=== PATIENT | male | born 1955 | race Caucasian/White ===

== ENCOUNTER 2017-04-04 00:53 | Emergency (ER) | payer MEDICARE, OTHER ==
[~2017-04-04] VITALS: Ht 180.3 cm; Wt 101.8 kg
[2017-04-04 00:58] VITALS: TEMP 98.2
[2017-04-04] MEDS ORDERED: MAVIK4 MG PO (01:04)
[2017-04-04 02:56] VITALS: BP 134/78; PULSE 80
[2017-04-04] MEDS ORDERED: ROXICODONE 55 MG/TAB PO (02:59)
[2017-04-04] MEDS ORDERED: FLEXERIL 1010 MG/TAB PO (02:59)
== END 2017-04-04 03:05 | disposition home or self-care (01) ==
LOC: COL.ER 00:53
DX: S16.1XXA Strain of muscle, fascia and tendon at neck level, initial encounter (principal); S39.012A Strain of muscle, fascia and tendon of lower back, initial encounter; W00.0XXA Fall on same level due to ice and snow, initial encounter; Y92.414 Local residential or business street as the place of occurrence of the external cause; I10 Essential (primary) hypertension; R40.2412 Glasgow coma scale score 13-15, at arrival to emergency department; Z88.6 Allergy status to analgesic agent; Z91.040 Latex allergy status
CPT/HCPCS: J1170

== ENCOUNTER 2017-04-06 02:57 | Emergency (ER) | payer MEDICARE, OTHER ==
[~2017-04-06] VITALS: Ht 180.3 cm; Wt 101.8 kg
[~2017-04-06 02:57] MED LIST: FLEXERIL 1010 MG/TAB PO; MAVIK4 MG PO; ROXICODONE 55 MG/TAB PO
[2017-04-06 03:05] VITALS: TEMP 97.9
[2017-04-06 04:36] LABS: BASO # 0.1 (0.0-0.2); EOS # 0.1 (0.0-0.7); EOS % 1.4 % (0-4.0); GRAN % 61.9 % (42.2-75.2); HEMATOCRIT 46.3 % (42.0-52.0); HEMOGLOBIN 15.5 g/dl (13.5-18.0); LYMPH # 2.6 (1.2-3.4); LYMPH % 26.9 % (20.0-51.0); MEAN CELL VOLUME 87 fl (80.0-100.0); MEAN CORPUSCULAR HEMOGLOBIN 29 pg (27.0-31.0); MEAN CORPUSCULAR HGB CONC 34 g/dl (33.0-37.0); MEAN PLATELET VOLUME 9.8 fl (7.4-10.4); MONO # 0.8 (0.1-0.6); MONO % 8.4 % (1.7-9.3); PLATELET COUNT 250 K/mm3 (130-400); RED BLOOD COUNT 5.32 M/mm3 (4.20-5.60); REDCELL DISTRIBUTION WIDTH-CV 13.1 % (11.5-14.5)
[2017-04-06 04:45] LABS: ALBUMIN 4.4 gm/dL (3.5-5.0); BILIRUBIN,TOTAL 1.4 mg/dL (0.0-1.0); CALCIUM 9.8 mg/dL (8.4-10.2); CREATININE, serum 0.96 mg/dL (0.66-1.25); POTASSIUM 4.3 mmol/L (3.4-5.0); TOTAL PROTEIN 7.3 gm/dL (6.4-8.2)
[2017-04-06 04:50] LABS: COLLECTION METHOD CLEAN CATCH
[2017-04-06 04:58] LABS: MUCOUS Present /lpf; PH 6 (5-8); SQUAMOUS EPITHELIAL None Seen /hpf; URINE APPEARANCE Clear; URINE BACTERIA Rare /hpf; URINE BILIRUBIN Negative (NEGATIVE); URINE BLOOD Negative (NEGATIVE); URINE COLOR Straw; URINE GLUCOSE Negative (NEGATIVE); URINE KETONE Negative (NEGATIVE); URINE LEUKOCYTE ESTERASE Negative (NEGATIVE); URINE NITRATE Negative (NEGATIVE); URINE PROTEIN(semi-quant) Negative (NEGATIVE); URINE RBC 0-2 /hpf; URINE UROBILINOGEN Negative (NEGATIVE)
[2017-04-06 05:58] VITALS: BP 167/99; PULSE 57
[2017-04-06] MEDS ORDERED: ANTIVERT 25MG25 MG PO (06:04)
[2017-04-06] MEDS ORDERED: VALIUM 2MG T2 MG/TAB PO (06:04)
== END 2017-04-06 06:16 | disposition home or self-care (01) ==
LOC: COL.ER 02:57
PROVIDERS: Emergency Medicine
DX: R42 Dizziness and giddiness (principal); I10 Essential (primary) hypertension; E78.5 Hyperlipidemia, unspecified; Z98.890 Other specified postprocedural states
CPT/HCPCS: J7030

== ENCOUNTER 2017-09-25 04:49 | Emergency (ER) | payer MEDICARE, OTHER ==
[~2017-09-25] VITALS: Ht 180.3 cm; Wt 87.3 kg
[~2017-09-25 04:49] MED LIST changes: +ANTIVERT 25MG25 MG PO; +VALIUM 2MG T2 MG/TAB PO
[2017-09-25 04:53] VITALS: TEMP 97.9
[2017-09-25] MEDS ORDERED: CLEOCIN HCL300 MG PO (05:35)
[2017-09-25] MEDS ORDERED: ROXICODONE 55 MG/TAB PO (05:35)
[2017-09-25] MEDS ORDERED: PERIDEX (CHLOR480 ML MM (06:05)
[2017-09-25 06:30] VITALS: BP 191/110; PULSE 59
== END 2017-09-25 06:26 | disposition home or self-care (01) ==
LOC: COL.ER 04:49
DX: K02.9 Dental caries, unspecified (principal); I10 Essential (primary) hypertension
CPT/HCPCS: J1170

== ENCOUNTER 2017-10-16 21:01 | Emergency (ER) | payer MEDICARE ==
[~2017-10-16] VITALS: Ht 180.3 cm; Wt 93.2 kg
[2017-10-16 21:01] VITALS: TEMP 97.8
[~2017-10-16 21:01] MED LIST changes: +CLEOCIN HCL300 MG PO; +PERIDEX (CHLOR480 ML MM
[2017-10-16] MEDS ORDERED: ASPIRIN 81M81 MG/TA2 PO (21:24)
[2017-10-16 22:51] VITALS: BP 186/101; PULSE 55
== END 2017-10-16 22:51 | disposition home or self-care (01) ==
LOC: COL.ER 21:01
DX: K04.7 Periapical abscess without sinus (principal); K02.9 Dental caries, unspecified; I10 Essential (primary) hypertension

== ENCOUNTER → 2018-02-21 | Outpatient (CLI) | payer MEDICARE ==
[~2018-02-21] MED LIST changes: +ASPIRIN 81M81 MG/TA2 PO
[2018-02-21 15:17] LABS: HEMATOCRIT 36.8 % (42.0-52.0); HEMOGLOBIN 12.5 g/dl (13.5-18.0); MEAN CELL VOLUME 91 fl (80.0-100.0); MEAN CORPUSCULAR HEMOGLOBIN 31 pg (27.0-31.0); MEAN CORPUSCULAR HGB CONC 34 g/dl (33.0-37.0); MEAN PLATELET VOLUME 9.5 fl (7.4-10.4); PLATELET COUNT 254 K/mm3 (130-400); RED BLOOD COUNT 4.04 M/mm3 (4.20-5.60); REDCELL DISTRIBUTION WIDTH-CV 14.9 % (11.5-14.5)
== END ==
LOC: COL.LAB 13:50
DX: Z01.89 Encounter for other specified special examinations (principal)

== ENCOUNTER → 2018-02-22 | Outpatient (CLI) | payer MEDICARE ==
[2018-02-22 14:28] LABS: COLLECTION METHOD CLEAN CATCH
[2018-02-22 14:50] LABS: AMORPHOUS CRYSTAL Present /uL; MUCOUS Present /lpf; PH 6 (5-8); SQUAMOUS EPITHELIAL 0-2 /hpf; URINE APPEARANCE Cloudy; URINE BACTERIA None Seen /hpf; URINE BILIRUBIN Negative (NEGATIVE); URINE BLOOD 2+ (NEGATIVE); URINE COLOR Red; URINE GLUCOSE Negative (NEGATIVE); URINE KETONE Negative (NEGATIVE); URINE LEUKOCYTE ESTERASE Negative (NEGATIVE); URINE NITRATE Negative (NEGATIVE); URINE PROTEIN(semi-quant) 2+ (NEGATIVE); URINE UROBILINOGEN Negative (NEGATIVE)
[2018-02-22 14:53] LABS: ALBUMIN 4.2 gm/dL (3.5-5.0); BILIRUBIN,TOTAL 4.2 mg/dL (0.0-1.0); CALCIUM 9.3 mg/dL (8.4-10.2); CHOLESTEROL RISK RATIO 2.8; CREATININE, serum 1.05 mg/dL (0.66-1.25); TOTAL PROTEIN 7.5 gm/dL (6.4-8.2)
[2018-02-22 15:21] LABS: TSH w REFLEX 1.44 uIU/mL (0.465-4.680)
== END ==
LOC: COL.LAB 13:24
DX: I10 Essential (primary) hypertension (principal); R42 Dizziness and giddiness

== ENCOUNTER → 2018-04-17 | Outpatient (CLI) | payer MEDICARE ==
[2018-04-17 12:12] LABS: BASO # 0.1 (0.0-0.2); BASO % 0.9 % (0.0-2.0); EOS # 0.2 (0.0-0.7); EOS % 2.2 % (0-4.0); GRAN # 4.5 (1.4-6.5); GRAN % 52.3 % (42.2-75.2); HEMATOCRIT 44.5 % (42.0-52.0); HEMOGLOBIN 15.2 g/dl (13.5-18.0); LYMPH # 3.1 (1.2-3.4); LYMPH % 35.5 % (20.0-51.0); MEAN CELL VOLUME 89 fl (80.0-100.0); MEAN CORPUSCULAR HEMOGLOBIN 31 pg (27.0-31.0); MEAN CORPUSCULAR HGB CONC 34 g/dl (33.0-37.0); MEAN PLATELET VOLUME 9.5 fl (7.4-10.4); MONO # 0.7 (0.1-0.6); MONO % 8.5 % (1.7-9.3); PLATELET COUNT 244 K/mm3 (130-400); RED BLOOD COUNT 4.98 M/mm3 (4.20-5.60); REDCELL DISTRIBUTION WIDTH-CV 12.8 % (11.5-14.5)
== END ==
LOC: COL.LAB 11:37
PROVIDERS: Registered Nurse
DX: R42 Dizziness and giddiness (principal)

== ENCOUNTER → 2018-05-02 | Outpatient (CLI) | payer MEDICARE, BC ==
[2018-05-02 14:50] LABS: ALBUMIN 4.5 gm/dL (3.5-5.0); BILIRUBIN,TOTAL 1.1 mg/dL (0.0-1.0); CALCIUM 9.9 mg/dL (8.4-10.2); CREATININE, serum 1.09 mg/dL (0.66-1.25); POTASSIUM 4.3 mmol/L (3.4-5.0); TOTAL PROTEIN 8.1 gm/dL (6.4-8.2)
== END ==
LOC: COL.LAB 14:01
PROVIDERS: Registered Nurse
DX: I10 Essential (primary) hypertension (principal); Z86.79 Personal history of other diseases of the circulatory system

== ENCOUNTER 2018-05-06 17:47 | Emergency (ER) | payer MEDICARE, BC ==
[~2018-05-06] VITALS: Ht 180.3 cm; Wt 97.7 kg
[2018-05-06 18:09] VITALS: BP 190/95; TEMP 98.2
[2018-05-06] MEDS ORDERED: ROXICODONE 55 MG/TAB PO (19:14)
[2018-05-06 19:30] VITALS: PULSE 61
== END 2018-05-06 19:30 | disposition home or self-care (01) ==
LOC: COL.ER 17:47
DX: M17.12 Unilateral primary osteoarthritis, left knee (principal); Z98.890 Other specified postprocedural states; Z79.82 Long term (current) use of aspirin

== ENCOUNTER → 2018-05-21 | Outpatient (CLI) | payer MEDICARE, BC | LOC: COL.LAB 14:19 | DX: Z01.812 Encounter for preprocedural laboratory examination (principal); Z86.14 Personal history of Methicillin resistant Staphylococcus aureus infection ==

== ENCOUNTER → 2018-06-10 | Outpatient (CLI) | payer MEDICARE, BC ==
[2018-06-10 11:52] LABS: BASO # 0.1 (0.0-0.2); BASO % 0.9 % (0.0-2.0); EOS # 0.1 (0.0-0.7); EOS % 1.3 % (0-4.0); GRAN # 4.5 (1.4-6.5); GRAN % 58.4 % (42.2-75.2); HEMATOCRIT 47.3 % (42.0-52.0); HEMOGLOBIN 16.1 g/dl (13.5-18.0); LYMPH # 2.4 (1.2-3.4); LYMPH % 31.6 % (20.0-51.0); MEAN CELL VOLUME 86 fl (80.0-100.0); MEAN CORPUSCULAR HEMOGLOBIN 29 pg (27.0-31.0); MEAN CORPUSCULAR HGB CONC 34 g/dl (33.0-37.0); MEAN PLATELET VOLUME 9.9 fl (7.4-10.4); MONO # 0.5 (0.1-0.6); PLATELET COUNT 283 K/mm3 (130-400); RED BLOOD COUNT 5.49 M/mm3 (4.20-5.60); REDCELL DISTRIBUTION WIDTH-CV 12.5 % (11.5-14.5)
[2018-06-10 11:53] LABS: INR 1.1 (0.8-3.0); PROTHROMBIN TIME 12.1 SECONDS (9.7-12.8)
[2018-06-10 11:54] LABS: ALBUMIN 4.3 gm/dL (3.5-5.0); BILIRUBIN,TOTAL 1.6 mg/dL (0.0-1.0); CALCIUM 9.6 mg/dL (8.4-10.2); CREATININE, serum 0.96 (0.66-1.25); POTASSIUM 4.2 mmol/L (3.4-5.0); TOTAL PROTEIN 7.4 gm/dL (6.4-8.2)
== END ==
LOC: COL.LAB 09:56
PROVIDERS: Registered Nurse
DX: Z01.818 Encounter for other preprocedural examination (principal); I10 Essential (primary) hypertension; R01.1 Cardiac murmur, unspecified

== ENCOUNTER → 2018-06-13 | Outpatient (CLI) | payer MEDICARE, BC ==
[2018-06-13 11:56] LABS: COLLECTION METHOD CLEAN CATCH
[2018-06-13 12:05] LABS: PH 7 (5-8); SQUAMOUS EPITHELIAL None Seen /hpf; URINE APPEARANCE Clear; URINE BACTERIA None Seen /hpf; URINE BILIRUBIN Negative (NEGATIVE); URINE BLOOD Negative (NEGATIVE); URINE COLOR Straw; URINE GLUCOSE Negative (NEGATIVE); URINE KETONE Negative (NEGATIVE); URINE LEUKOCYTE ESTERASE Negative (NEGATIVE); URINE NITRATE Negative (NEGATIVE); URINE PROTEIN(semi-quant) Negative (NEGATIVE); URINE RBC 0-2 /hpf; URINE UROBILINOGEN Negative (NEGATIVE)
== END ==
LOC: COL.LAB 11:37
PROVIDERS: Registered Nurse
DX: Z01.818 Encounter for other preprocedural examination (principal); I10 Essential (primary) hypertension; R01.1 Cardiac murmur, unspecified

== ENCOUNTER → 2018-06-13 | Outpatient (CLI) | payer MEDICARE, BC | LOC: COL.VAS 10:46 | DX: Z01.818 Encounter for other preprocedural examination (principal); I10 Essential (primary) hypertension; R01.1 Cardiac murmur, unspecified ==

== ENCOUNTER 2019-02-10 06:18 | Emergency (ER) | payer MEDICARE, OTHER ==
[~2019-02-10] VITALS: Ht 180.3 cm; Wt 104.5 kg
[2019-02-10 06:26] VITALS: BP 162/84; PULSE 77; TEMP 99
[2019-02-10] MEDS ORDERED: CHERATUSSIN AC120 ML PO (07:05)
== END 2019-02-10 07:14 | disposition home or self-care (01) ==
LOC: COL.ER 06:18
DX: J20.9 Acute bronchitis, unspecified (principal); M25.561 Pain in right knee; G89.29 Other chronic pain; Z79.82 Long term (current) use of aspirin

== ENCOUNTER → 2019-04-21 | Outpatient (CLI) | payer MEDICARE, OTHER ==
[~2019-04-21] MED LIST changes: +CHERATUSSIN AC120 ML PO
[2019-04-21 10:31] LABS: COLLECTION METHOD CLEAN CATCH
[2019-04-21 10:46] LABS: PH 5 (5-8); SQUAMOUS EPITHELIAL None Seen /hpf; URINE APPEARANCE Clear; URINE BACTERIA None Seen /hpf; URINE BILIRUBIN Negative (NEGATIVE); URINE BLOOD 1+ (NEGATIVE); URINE COLOR Yellow; URINE GLUCOSE Negative (NEGATIVE); URINE KETONE Negative (NEGATIVE); URINE LEUKOCYTE ESTERASE Negative (NEGATIVE); URINE NITRATE Negative (NEGATIVE); URINE PROTEIN(semi-quant) Negative (NEGATIVE); URINE RBC 0-2 /hpf; URINE UROBILINOGEN Negative (NEGATIVE)
[2019-04-21 10:54] LABS: BASO # 0.1 (0.0-0.2); BASO % 1.1 % (0.0-2.0); EOS # 0.2 (0.0-0.7); EOS % 2.2 % (0-4.0); GRAN # 4.8 (1.4-6.5); GRAN % 59.3 % (42.2-75.2); HEMOGLOBIN 16.3 g/dl (13.5-18.0); LYMPH # 2.3 (1.2-3.4); LYMPH % 28.9 % (20.0-51.0); MEAN CELL VOLUME 87 fl (80.0-100.0); MEAN CORPUSCULAR HEMOGLOBIN 29 pg (27.0-31.0); MEAN CORPUSCULAR HGB CONC 33 g/dl (33.0-37.0); MEAN PLATELET VOLUME 9.9 fl (7.4-10.4); MONO # 0.6 (0.1-0.6); PLATELET COUNT 251 K/mm3 (130-400); RED BLOOD COUNT 5.64 M/mm3 (4.20-5.60); REDCELL DISTRIBUTION WIDTH-CV 13.1 % (11.5-14.5)
[2019-04-21 10:57] LABS: ALBUMIN 4.5 gm/dL (3.5-5.0); BILIRUBIN,TOTAL 1.3 mg/dL (0.0-1.0); CALCIUM 9.8 mg/dL (8.4-10.2); CREATININE, serum 0.91 (0.66-1.25); TOTAL PROTEIN 7.9 gm/dL (6.4-8.2)
[2019-04-21 11:07] LABS: INR 0.9 (0.8-3.0)
== END ==
LOC: COL.LAB 10:12
PROVIDERS: Registered Nurse
DX: Z01.812 Encounter for preprocedural laboratory examination (principal); I10 Essential (primary) hypertension; R01.1 Cardiac murmur, unspecified

== ENCOUNTER → 2019-04-30 | Outpatient (CLI) | payer MEDICARE, OTHER | LOC: COL.VAS 10:30 | DX: M79.661 Pain in right lower leg (principal); Z96.651 Presence of right artificial knee joint ==

== ENCOUNTER 2019-05-16 07:38 | Emergency (ER) | payer MEDICARE, OTHER ==
[~2019-05-16] VITALS: Ht 180.3 cm; Wt 102.3 kg
[2019-05-16 08:56] LABS: BASO % 0.4 % (0.0-2.0); EOS % 0.2 % (0-4.0); GRAN # 4.1 (1.4-6.5); GRAN % 73.6 % (42.2-75.2); HEMATOCRIT 42.7 % (42.0-52.0); HEMOGLOBIN 13.7 g/dl (13.5-18.0); LYMPH # 0.8 (1.2-3.4); LYMPH % 15.2 % (20.0-51.0); MEAN CELL VOLUME 89 fl (80.0-100.0); MEAN CORPUSCULAR HEMOGLOBIN 29 pg (27.0-31.0); MEAN CORPUSCULAR HGB CONC 32 g/dl (33.0-37.0); MEAN PLATELET VOLUME 9.6 fl (7.4-10.4); MONO # 0.6 (0.1-0.6); MONO % 10.1 % (1.7-9.3); PLATELET COUNT 180 K/mm3 (130-400); REDCELL DISTRIBUTION WIDTH-CV 13.1 % (11.5-14.5)
[2019-05-16 09:08] LABS: ALBUMIN 4.1 gm/dL (3.5-5.0); BILIRUBIN,TOTAL 1.2 mg/dL (0.0-1.0); CALCIUM 8.7 mg/dL (8.4-10.2); CREATININE, serum 1.12 (0.66-1.25); POTASSIUM 3.8 mmol/L (3.4-5.0); TOTAL PROTEIN 7.1 gm/dL (6.4-8.2)
[2019-05-16 09:27] LABS: STREP SCREEN NEGATIVE
[2019-05-16] MEDS ORDERED: TAMIFLU 75MG75 MG PO (09:40)
[2019-05-16 09:53] VITALS: BP 136/70; PULSE 78; TEMP 98.9
== END 2019-05-16 09:52 | disposition home or self-care (01) ==
LOC: COL.ER 07:38
PROVIDERS: Emergency Medicine
DX: J10.1 Influenza due to other identified influenza virus with other respiratory manifestations (principal); Z79.82 Long term (current) use of aspirin
CPT/HCPCS: J7030

== ENCOUNTER 2019-07-02 10:28 | Emergency (ER) | payer MEDICARE, OTHER ==
[~2019-07-02 10:28] MED LIST changes: +TAMIFLU 75MG75 MG PO
[2019-07-02 11:26] LABS: ALANINE AMINOTRANSFERASE 25 U/L (4-49); ALBUMIN 4.5 gm/dL (3.5-5.0); ALKALINE PHOSPHATASE 77 U/L (50-136); ANION GAP 7 mmol/L (7-16); AST,SGOT 30 U/L (15-37); BILIRUBIN,TOTAL 1.4 mg/dL (0.0-1.0); BLOOD UREA NITROGEN 12 mg/dL (9-20); CALCIUM 9.7 mg/dL (8.4-10.2); CARBON DIOXIDE 25 mmol/L (22-30); CHLORIDE 104 mmol/L (98-107); CREATININE, serum 0.84 (0.66-1.25); GLUCOSE 129 mg/dL (74-106); POTASSIUM 3.8 mmol/L (3.4-5.0); SODIUM 137 mmol/L (137-145); TOTAL PROTEIN 7.4 gm/dL (6.4-8.2)
[2019-07-02 11:28] LABS: INR 0.9 (0.8-3.0); PROTHROMBIN TIME 10.7 SECONDS (9.7-12.8)
[2019-07-02 11:29] LABS: BASO # 0.1 (0.0-0.2); BASO % 0.9 % (0.0-2.0); EOS # 0.2 (0.0-0.7); EOS % 2.5 % (0-4.0); GRAN # 4.7 (1.4-6.5); GRAN % 57.6 % (42.2-75.2); HEMATOCRIT 47.6 % (42.0-52.0); LYMPH # 2.4 (1.2-3.4); MEAN CELL VOLUME 87 fl (80.0-100.0); MEAN CORPUSCULAR HEMOGLOBIN 29 pg (27.0-31.0); MEAN CORPUSCULAR HGB CONC 34 g/dl (33.0-37.0); MONO # 0.7 (0.1-0.6); MONO % 8.4 % (1.7-9.3); PLATELET COUNT 241 K/mm3 (130-400); RED BLOOD COUNT 5.47 M/mm3 (4.20-5.60); REDCELL DISTRIBUTION WIDTH-CV 13.4 % (11.5-14.5)
[2019-07-02 11:42] LABS: TROPONIN-I < 0.012 ng/mL (0.000-0.035)
[2019-07-02 12:32] LABS: COLLECTION METHOD CLEAN CATCH
[2019-07-02] MEDS ORDERED: LACRI-LUBE1 OIN OS (12:37)
[2019-07-02 12:39] LABS: PH 6 (5-8); SQUAMOUS EPITHELIAL None Seen /hpf; URINE APPEARANCE Clear; URINE BACTERIA None Seen /hpf; URINE BILIRUBIN Negative (NEGATIVE); URINE BLOOD Negative (NEGATIVE); URINE COLOR Colorless; URINE GLUCOSE Negative (NEGATIVE); URINE KETONE Negative (NEGATIVE); URINE LEUKOCYTE ESTERASE Negative (NEGATIVE); URINE NITRATE Negative (NEGATIVE); URINE PROTEIN(semi-quant) Negative (NEGATIVE); URINE RBC None Seen /hpf; URINE UROBILINOGEN Negative (NEGATIVE); URINE WBC 0-2 /hpf
[2019-07-02] MEDS ORDERED: VALTREX1 GM PO (12:40)
[2019-07-02] MEDS ORDERED: PREDNISONE20 MG PO (12:40)
[2019-07-02 12:52] VITALS: BP 157/89; PULSE 58; TEMP 97.5
== END 2019-07-02 12:58 | disposition home or self-care (01) ==
LOC: COL.ER 10:28
PROVIDERS: Physician Assistant
DX: G51.0 Bell's palsy (principal); I10 Essential (primary) hypertension; I48.91 Unspecified atrial fibrillation; Z79.82 Long term (current) use of aspirin
CPT/HCPCS: J7030; J7512

== ENCOUNTER 2019-11-17 14:46 | Emergency (ER) | payer MEDICARE, OTHER ==
[~2019-11-17] VITALS: Ht 180.3 cm; Wt 102.3 kg
[~2019-11-17 14:46] MED LIST changes: +LACRI-LUBE1 OIN OS; +PREDNISONE20 MG PO; +VALTREX1 GM PO
[2019-11-17 15:33] VITALS: BP 161/83; TEMP 98.7
[2019-11-17] MEDS ORDERED: DAZIDOX10 MG PO (17:55)
[2019-11-17] MEDS ORDERED: MEDROL 4MG DOSPA4 MG PO (17:55)
[2019-11-17 18:04] VITALS: PULSE 77
== END 2019-11-17 18:04 | disposition home or self-care (01) ==
LOC: COL.ER 14:46
DX: M54.12 Radiculopathy, cervical region (principal); Z79.82 Long term (current) use of aspirin
CPT/HCPCS: J7512

== ENCOUNTER 2019-11-29 16:14 | Emergency (ER) | payer MEDICARE, OTHER ==
[~2019-11-29] VITALS: Ht 180.3 cm; Wt 103.2 kg
[~2019-11-29 16:14] MED LIST changes: +DAZIDOX10 MG PO; +MEDROL 4MG DOSPA4 MG PO
[2019-11-29 16:22] VITALS: TEMP 98.1
[2019-11-29] MEDS ORDERED: ASPIRIN 32325 MG/TAB PO (16:41)
[2019-11-29] MEDS ORDERED: NORVASC 10MG10 MG PO (16:42)
[2019-11-29] MEDS ORDERED: COZAAR 50MG50 MG/TAB PO (16:42)
[2019-11-29] MEDS ORDERED: DAZIDOX10 MG PO (16:44)
[2019-11-29 16:50] VITALS: BP 137/74; PULSE 57
== END 2019-11-29 16:50 | disposition home or self-care (01) ==
LOC: COL.ER 16:14
DX: M54.12 Radiculopathy, cervical region (principal); I48.91 Unspecified atrial fibrillation; G89.29 Other chronic pain; Z79.82 Long term (current) use of aspirin; Z88.6 Allergy status to analgesic agent

== ENCOUNTER 2020-03-06 10:30 | Emergency (ER) | payer MEDICARE, OTHER ==
[~2020-03-06] VITALS: Ht 180.3 cm; Wt 106.8 kg
[~2020-03-06 10:30] MED LIST changes: +ASPIRIN 32325 MG/TAB PO; +COZAAR 50MG50 MG/TAB PO; +NORVASC 10MG10 MG PO
[2020-03-06 10:33] VITALS: BP 161/83; TEMP 98
[2020-03-06] MEDS ORDERED: ROBAXIN 50500 MG/TAB PO (11:02)
[2020-03-06 11:10] VITALS: PULSE 78
== END 2020-03-06 11:14 | disposition home or self-care (01) ==
LOC: COL.ER 10:30
DX: G89.29 Other chronic pain (principal); M54.5 Low back pain; I10 Essential (primary) hypertension; Z88.6 Allergy status to analgesic agent; Z87.891 Personal history of nicotine dependence; Z79.82 Long term (current) use of aspirin